=== PATIENT | female | born 1950 | race Caucasian/White ===

== ENCOUNTER → 2016-10-06 | Outpatient (CLI) | payer OTHER, MEDICAID | LOC: FIMAGING 14:35 | DX: Z12.31 Encounter for screening mammogram for malignant neoplasm of breast (principal) | CPT/HCPCS: G0202 ==

== ENCOUNTER → 2016-12-22 | Outpatient (CLI) | payer OTHER, MEDICAID | LOC: FIMAGING 14:42 | DX: N63.20 Unspecified lump in the left breast, unspecified quadrant (principal) | CPT/HCPCS: G0206 ==

== ENCOUNTER → 2017-01-14 | Outpatient (CLI) | payer OTHER, MEDICAID | LOC: FIMAGING 10:19 | DX: N63.21 Unspecified lump in the left breast, upper outer quadrant (principal) ==

== ENCOUNTER → 2017-05-13 | Outpatient (CLI) | payer OTHER, MEDICAID ==
--- NOTE | 2017-05-13 11:47 | CPEKG ---
Heart Rate: 105 RR Interval: 571 P-R Interval: 132 QRSD Interval: 72 QT Interval: 324 QTC Interval: 429 P [place]: 79 QRS [place]: 47 T Wave [place]: 99 EKG Severity - ABNORMAL ECG - EKG Impression: SINUS TACHYCARDIA EKG Impression: ABNORMAL R WAVE PROGRESSION. ? LEAD PLACEMENT VS POSTERIOR INFARCT Electronically Signed By: Jamie Nix 13-May-2017 12:41:10
== END ==
LOC: FCP 11:19
PROVIDERS: ATTEND Internal Medicine Cardiovascular Disease
DX: Z01.810 Encounter for preprocedural cardiovascular examination (principal); R00.0 Tachycardia, unspecified

== ENCOUNTER 2017-05-25 17:08 | Inpatient (IN) | payer OTHER, MEDICAID ==
--- NOTE | 2017-05-04 17:36 | BGECT ---
[f rep st] OUTPATIENT ECT Amended report DATE OF SERVICE: 05/01/[address] PLACE OF EVALUATION: [facility]. SOURCES OF INFORMATION: Include records from patient's previous treatment with Dr. Palm at the [facility], Dr. Palm's previous consultation for ECT dated 04/27/2012, previous hospitalization with Dr. Pierre at [facility] geriatric psych unit dated 04/23/2014 and my own admission note to the behavioral health services inpatient unit dated 05/28/2014, as well as recent labs, EKG, and a letter of referral from Dr. Alicea from [facility] that is not dated. CHIEF COMPLAINT: "I just have to do ECT." HISTORY OF PRESENT ILLNESS: Patient is a 66-year-old female with a history of schizoaffective disorder, depressed type. She was referred by Dr. Alicea after he saw her at the group home in which she resides, and stated that she was severely depressed. They had made numerous attempts to treat her with medications including Abilify, Cymbalta, Depakote, Elavil, imipramine, Zyprexa, Zoloft, Trileptal, Latuda and Seroquel. These were all ineffective and Dr. Alicea believes that the ECT is the only thing that has helped her when she gets this severe in the past. I discussed this with the patient and she stated that she felt "very depressed" and that she believes that the ECT "is the only thing that will help me." Staff notes that she is quite anergic, unable to ambulate significantly on her own, has pressure sores from lying in bed, has not been eating or drinking adequately and appears severely depressed. There have been no other significant interval changes from my previous evaluation of 05/29/2014, in regard to her general physical health. She continues to suffer from COPD, cor pulmonale, obesity, diabetes, and edema. She does have a pressure ulcer apparently in her sacral area. PAST PSYCHIATRIC HISTORY: Well documented elsewhere. She is currently a patient at [facility]. She has had numerous previous psychiatric hospitalizations including briefly with us in May of 2014. At that time, she had a court order for ECT, though was in such a tenuous medical state I did not perform ECT with her. She had been treated by Dr. Palm with a rather lengthy course of inpatient and outpatient maintenance ECT from April of 2012 until October of 2013. I saw her at the end of this course of treatment , in fact giving her her last treatment in October of 2013 before she requested discontinuation of ECT. We did stop at that time, though she returned in May of 2014, because she was not doing well. She was under court order at that time and then was admitted to the inpatient unit, but her health deteriorated, and we did not continue ECT after the 1 treatment on May 10, 2014. Since that time, she has been treated in the group home by Dr. Alicea with medication management. ALLERGIES: Levofloxacin, Lamictal, and clemastine. PAST MEDICAL HISTORY: Significant for COPD, cor pulmonale, obesity, type 2 diabetes, chronic edema. SOCIAL HISTORY: Patient continues to reside at [facility]. She was born and raised in [place]. She has 1 living sister, though it is unclear if she is still in contact with this person. She had 2 sisters and a brother who are . She did not graduate from high school. She has never been , but did have a partner in the past, who she considers to be her . She has no children. She identifies herself as homosexual. She has an extensive trauma history including the of her siblings at an early age. The patient is Syn[employer], though does not practice paul. SUBSTANCE ABUSE HISTORY: No significant substance abuse history is identified at this time. ADMISSION LABORATORY: Recent labs were drawn including a CBC which was normal, serum chemistries, which were also normal. Liver function was normal. EKG is difficult to interpret and shows extremely low voltage and inverted T-waves in V2. We will repeat this. PREPROCEDURE PHYSICAL EXAMINATION: Performed on 05/02/2017 by Elmo Hartman, nurse-practitioner, revealed no acute physical findings. MENTAL STATUS EXAMINATION: Reveals an elderly female who appears older than her stated age. She is interactive and, as has been my observation in the past, somewhat sandra. She is demanding and I spend at least 20 minutes getting her situated between her chair and her bed and helping to position herself comfortably. She interacts and is alert and well oriented. Her affect is blunted, dysphoric, stable and appropriate. Her mood is described as "very depressed." Her thought process is linear and goal directed. Her thought content reveals no overt psychosis. She is alert and oriented to person, place , time, and situation, and her sensorium is clear. She denies current thoughts of suicide though states that she feels like "I am going to if I don't get better." Her intellect appears to be average and her insight and judgment appear to be good. IMPRESSION: Schizoaffective disorder, depressed type, chronic with acute exacerbation of the mood component of her illness in the form of severe depression, chronic illnesses, recurrent depression, increasing physical disability. Patient is a 66-year-old female with a history of schizoaffective disorder. She has not wanted to do ECT in the past, even though she has had severe symptoms, and it has had to be court ordered. In my experience with her , she has been ambivalent about ongoing treatment even when she is feeling better, though at this time she is actively requesting ECT. I believe that she is a good candidate as this has worked well for her in the past and clearly she has failed multiple trials and close followup by Dr. Alicea as an outpatient. Staff and Dr. Alicea prefer that she pursue ECT on an outpatient basis so that they can continue to care for her at the group home. The patient states repeatedly to me that she believes ECT is her best hope at this time. She is well oriented and clearly able to give informed consent. I discussed again with her the basis of the treatment, the risks, benefits, and alternatives, the organization of the treatment and the potential side effects and toxicities. She states several times "I know all that stuff." She declines any educational materials. PLAN: 1. Will request prior authorization from Medicaid to proceed with acute course ECT. We will begin this if approved from the group home as an outpatient. 2. Will continue previous outpatient medications as per previously prescribed and coordinate ongoing care with Dr. Alicea and [facility]. 3. Estimate 8-10 acute course treatments and move to maintenance. 4. All of above pending adequate medical clearance. /[id number]/MODL Add acc#, 05/30/17, mick MEDINA
--- NOTE | 2017-05-25 17:20 | EDPHY ---
H & P Smoking Status: Former smoker Time Seen by Provider: 05/25/17 17:09 HPI/ROS: CHIEF COMPLAINT: M1 hold, failure to thrive HISTORY OF PRESENT ILLNESS: 66-year-old female who is a resident at [facility] presents to the emergency department by ambulance on M1 hold. The patient has a history of schizoaffective disorder and the hold states that she has been losing weight and refusing to eat because of depression. Patient states that she has been eating 2 meals a day. She states that she has been losing weight and she does not know why. She is just getting over pneumonia which was diagnosed a few weeks ago and she feels that her breathing is much better now. No pain in her chest currently. She denies shortness of breath. She does have a history of COPD. No fevers or chills. She denies suicidal ideation or homicidal ideation. Denies auditory or visual hallucinations. REVIEW OF SYSTEMS: Constitutional: No fever, no chills. Eyes: No double or blurry vision. ENT: No sore throat. Respiratory: No cough, no shortness of breath. Cardiac: No chest pain. Gastrointestinal: No abdominal pain, vomiting or diarrhea. Genitourinary: No dysuria. Musculoskeletal: No neck or back pain. Skin: No rashes. Neurological: No headache. (Amelia Diaz) Past Medical/Surgical History: CHF, COPD, cellulitis, psychosis, hypertension, diabetes, hypothyroidism, depression (Joe,Amelia ) Social History: [facility] at [facility] Physical Exam: General Appearance: Alert, no distress. 36.3, 114/72, 92%, 105, 18 Eyes: Pupils equal and round. Extraocular motions are all intact. ENT: Mouth: Mucous membranes moist. Respiratory: No wheezing, rhonchi, or rales, lungs are clear to auscultation. Cardiovascular: Regular rate and rhythm. Gastrointestinal: Abdomen is soft and nontender, no masses, no rebound or guarding, bowel sounds normal. Neurological: Alert and oriented x 3, cranial nerves II through XII grossly intact Skin: Warm and dry, no rashes. Musculoskeletal: Nontender to palpate along the cervical, thoracic or lumbar spine. Neck is supple. Extremities: Full range of motion and no peripheral edema. Psychiatric: Patient is oriented X 3, there is no agitation. (Amelia Diaz) Constitutional: Initial Vital Signs Temperature (C) 36.3 C 05/25/17 17:14 Heart Rate 105 H 05/25/17 17:14 Respiratory Rate 18 05/25/17 17:14 Blood Pressure 114/72 18 17:14 O2 Sat (%) 92 18 17:14 O2 Delivery Mode Room Air O2 (L/minute) 2 Allergies/Adverse Reactions: levofloxacin [From Levaquin] Allergy (Intermediate, Verified 05/25/17 17:18) Abdominal Pain lamotrigine [From Lamictal] Allergy (Mild, Verified 05/25/17 17:18) Rash clemastine [Clemastine] Allergy (Unknown, Verified 05/25/17 17:18) diphenhydramine HCl [From Benadryl] Allergy (Unknown, Verified 05/25/17 17:18) erythromycin base [Erythromycin Base] Allergy (Unknown, Verified 05/25/17 17:18) Penicillins Allergy (Unknown, Verified 05/25/17 17:18) prochlorperazine edisylate [From Compazine] Allergy (Unknown, Verified 05/25/17 17:18) prochlorperazine maleate [From Compazine] Allergy (Unknown, Verified 05/25/17 17 :18) pseudoephedrine HCl [From Sudafed] Allergy (Unknown, Verified 05/25/17 17:18) Sulfa (Sulfonamide Antibiotics) Allergy (Unknown, Verified 05/25/17 17:18) theophylline Allergy (Unknown, Verified 08/02/14 03:05) Arrhythmia "THERE IS MORE, CAN'T REMEMBER Allergy (Unknown, Uncoded 08/02/14 03:05) Home Medications: Medication Instructions Recorded Paliperidone Palmitate [Invega 156 mg IM ONCE 05/22/14 Sustenna (*)] Albuterol [Proventil Inhaler HFA 2 puffs IH QID 30 Days mdi 06/03/14 (*)] Benztropine Mesylate [Cogentin] 1 mg PO BID #60 tab 06/03/14 Divalproex [Depakote Sprinkle 125 500 mg PO BID #240 cap 06/03/14 MG (*)] Fluticasone/Salmeter 250/50Mcg 1 puffs IH BID 30 Days disk 06/03/14 [Advair 250/50 (*)] Meloxicam [Mobic 7.5 mg] 7.5 mg PO BIDMEAL #60 tablet 06/03/14 Tears/Hypromellose [Natural 2 drops EACHEYE QID PRN 30 Days 06/03/14 Balance] opht.btl Acetaminophen [Tylenol ES 500 mg 500 mg PO Q4 PRN 05/25/17 (*)] Cholecalciferol (Vitamin D3) 50,000 unit PO Q30D 05/25/17 [Vitamin D] Docusate Sodium [Colace 100 MG (*)] 100 mg PO BID 05/25/17 Ipratropium [Atrovent Neb (*)] 0.5 mg IH Q4H PRN 05/25/17 Ketoconazole 2% [Nizoral Shampoo 0 ml TP TUFR 05/25/17 (*)] LORazepam [Ativan (*)] 1 mg PO BID PRN 05/25/17 Lidocaine [Aspercreme] 1 each TP BID PRN 05/25/17 Liothyronine Sodium [Cytomel 25 25 mcg PO DAILY 05/25/17 mcg (*)] Loperamide HCl [Imodium 2 mg (*)] 2 mg PO PRN PRN 05/25/17 Polyethylene Glycol 3350 [Miralax 17 gm PO DAILY PRN 05/25/17 17 gm (*)] Sennosides [Senna Lax] 17.2 mg PO DAILY PRN 05/25/17 Sodium Cl/Potassium Chloride 2 each PO BID PRN 05/25/17 [THERMOTABS TABLET] oxyCODONE/APAP 5/325 [Percocet 1 tab PO QID PRN 05/25/17 5/325 (*)] Medical Decision Making ED Course/Re-evaluation: 1926: I spoke with the patient's psychiatrist, Dr. Alicea, who feels that this patient is gravely disabled. He states that she has schizoaffective disorder and is having increasing symptoms of depression over last several months. It is getting to the point now where she is refusing to get out of bed T meals and now is refusing to get out of bed to use the bathroom. He has already contacted [facility] and feels strongly that she needs to be evaluated. (Amelia Diaz) 0206; patient has been seen evaluated by mental health. They feel that she is gravely disabled and she needs inpatient psychiatric hospitalization criteria. They will look for bed placement. 0347: No acute events overnight patient has been sleeping. Patient will be signed over to Dr. Frederick at 7am Shift-change. Patient on M1 hold, history of schizoaffective disorder, gravely disabled. 0332AM: 05/27/17: Patient has been sleeping. Signed over at 7:00 a.m. Shift change to Dr. Lisa. On M1 hold gravely disable with schizoaffective disorder pending placement. (Juan Irizarry) Other Provider: Care assumed at 0637 with plan for psych admission, schizoaffective with worsening depression, not eating, gravely disabled. 1440: Signed out to Dr. Almaguer with plan for psychiatric hospitalization. ( Trevor Frederick) 2024: Patient has been evaluated. Placement pending. (Delvin Almaguer) I assumed care of the patient at 7 o'clock in the morning. Update at 9:45 a.m.: The patient has been accepted for inpatient psychiatric hospitalization at [facility] by Dr. Fili Su. I have filled out the EMTALA transfer form. (Nikolay Lisa) Care Turn Over: Care will be turned over to Dr. Juan Irizarry at 12:15 a.m.. (Amelia Diaz) - Data Points Laboratory Results: Laboratory Results 05/25/17 17:50 05/25/17 17:50 Medications Given: Oxycodone/Acetaminophen (Percocet 5/325) 1 tab PO Q6HRS CIELO Stop: 06/05/17 03:59 Last Admin: 05/27/17 09:18 Dose: Not Given Fluticasone/Salmeterol (Advair) 1 puffs IH BID CIELO Stop: 11/22/17 20:59 Last Admin: 05/26/17 21:02 Dose: Not Given Trolamine Salicylate (Aspercreme) 1 janina TP BID CIELO Stop: 11/22/17 10:44 Last Admin: 05/26/17 21:02 Dose: 1 janina Discontinued Medications Albuterol/Ipratropium (Duoneb) 3 ml IH EDNOW ONE Stop: 05/26/17 17:39 Last Admin: 05/26/17 17:49 Dose: 3 ml Benztropine Mesylate (Cogentin) 1 mg PO BID ONE Stop: 05/25/17 23:53 Last Admin: 05/26/17 09:56 Dose: 1 mg Benztropine Mesylate (Cogentin) 1 mg PO ONCE ONE Stop: 05/26/17 21:01 Last Admin: 05/26/17 20:58 Dose: 1 mg Benztropine Mesylate (Cogentin) 1 mg PO EDNOW ONE Stop: 05/27/17 07:23 Last Admin: 05/27/17 08:05 Dose: 1 mg Divalproex Sodium (Depakote Er) 500 mg PO BID CIELO Stop: 11/21/17 23:44 Last Admin: 05/26/17 09:00 Dose: Not Given Divalproex Sodium (Depakote Sprinkle) 500 mg PO ONCE ONE Stop: 05/26/17 08:18 Last Admin: 05/26/17 09:56 Dose: 500 mg Divalproex Sodium (Depakote) 500 mg PO ONCE ONE Stop: 05/26/17 21:01 Last Admin: 05/26/17 20:58 Dose: 500 mg Divalproex Sodium (Depakote) 500 mg PO EDNOW ONE Stop: 05/27/17 07:23 Last Admin: 05/27/17 08:04 Dose: 500 mg Docusate Sodium (Colace) 100 mg PO BID ONE Stop: 05/25/17 23:54 Last Admin: 05/26/17 00:29 Dose: Not Given Lorazepam (Ativan) 1 mg PO ONCE ONE Stop: 05/26/17 21:01 Last Admin: 05/26/17 20:59 Dose: 1 mg Oxycodone/Acetaminophen (Percocet 5/325) 1 tab PO EDNOW ONE Stop: 05/25/17 20:20 Last Admin: 05/25/17 21:48 Dose: 1 tab Oxycodone/Acetaminophen (Percocet 5/325) 1 tab PO ONCE ONE Stop: 05/26/17 22:01 Last Admin: 05/26/17 21:00 Dose: 1 tab Departure - Departure Clinical Impression: Schizoaffective disorder Qualifiers: Schizoaffective disorder type: bipolar Qualified Code(s): F25.0 - Schizoaffective disorder, bipolar type Condition: Good Instructions: Schizoaffective Disorder (ED) Referrals: Sander Alicea MD [Non Staff Provider (MD)] - As per Instructions
[2017-05-25 17:58] LABS: PLATELET COUNT 280 10^3/uL (150-400)
[2017-05-25] MEDS ORDERED: OXYCODONE/APAP 5/325 TAB PO ONE (20:19)
[2017-05-25] MEDS ORDERED: DIVALPROEX ER 500 MG TAB PO SCH (23:45)
[2017-05-25] MEDS ORDERED: DOCUSATE SODIUM 100 MG CAP PO ONE (23:53)
[2017-05-26] MEDS: BENZTROPINE MESYLATE 1 MG TAB PO ONE ×2 (00:29→09:56)
[2017-05-26] MEDS: OXYCODONE/APAP 5/325 TAB PO SCH ×4 (03:50→15:54)
[2017-05-26] MEDS ORDERED: DIVALPROEX NA 125 MG CAP.SPRINKLE PO ONE (08:17)
[2017-05-26] MEDS ORDERED: FLUTICASONE/SALMETER 250/50MCG DISKUS IH SCH (09:00)
[2017-05-26] MEDS: TROLAMINE SALICYLATE 85 GM CRTUBE TP SCH ×2 (13:31→21:02)
[2017-05-26] MEDS ORDERED: IPRATROPIUM/ALBUTEROL 3 ML DEYVIAL IH ONE (17:38)
[2017-05-26] MEDS ORDERED: LORazepam 1 MG TAB PO ONE (21:00)
[2017-05-26] MEDS ORDERED: DIVALPROEX NA 500 MG TAB PO ONE (21:00)
[2017-05-26] MEDS ORDERED: BENZTROPINE MESYLATE 1 MG TAB PO ONE (21:00)
[2017-05-26] MEDS: FLUTICASONE/SALMETER 250/50MCG DISKUS IH SCH (21:02)
[2017-05-26] MEDS ORDERED: OXYCODONE/APAP 5/325 TAB PO ONE (22:00)
[2017-05-27] MEDS: OXYCODONE/APAP 5/325 TAB PO SCH ×4 (04:38→17:09)
[2017-05-27] MEDS ORDERED: BENZTROPINE MESYLATE 1 MG TAB PO ONE (07:22)
[2017-05-27] MEDS ORDERED: DIVALPROEX NA 500 MG TAB PO ONE (07:22)
[2017-05-27] MEDS: TROLAMINE SALICYLATE 85 GM CRTUBE TP SCH (11:49)
[2017-05-27] MEDS ORDERED: POTASSIUM CHLORIDE PO PRN ×2 (11:54→12:07)
[2017-05-27] MEDS ORDERED: IPRATROPIUM BROMIDE 0.5 MG/2.5 ML DEYVIAL IH PRN (11:54)
[2017-05-27] MEDS ORDERED: POLYETHYLENE GLYCOL 3350 17 GM PKT PO PRN (11:54)
[2017-05-27] MEDS ORDERED: SODIUM CL PO PRN ×2 (11:54→12:07)
[2017-05-27] MEDS ORDERED: SENNOSIDES 1 TAB PO PRN ×2 (11:54→12:02)
[2017-05-27] MEDS ORDERED: NON-FORMULARY NEW DRUG (Tears/Hypromellose [Natural Balance] 2 DROPS) EACHEYE PRN (11:54)
[2017-05-27] MEDS ORDERED: LIDOCAINE TP PRN (11:54)
[2017-05-27] MEDS ORDERED: OXYCODONE/APAP 5/325 TAB PO PRN (11:54)
[2017-05-27] MEDS ORDERED: KETOCONAZOLE 2% 120 ML SHAMPOO TP SCH (12:00)
[2017-05-27] MEDS ORDERED: TROLAMINE SALICYLATE 85 GM CRTUBE TP PRN (12:06)
[2017-05-27] MEDS ORDERED: HYPROMELLOSE EACHEYE PRN (12:10)
[2017-05-27] MEDS ORDERED: TEARS EACHEYE PRN (12:10)
[2017-05-27] MEDS: KETOCONAZOLE 2% 120 ML SHAMPOO TP SCH (12:50)
[2017-05-27] MEDS: FLUTICASONE/SALMETER 250/50MCG DISKUS IH SCH ×2 (15:00→19:55)
[2017-05-27] MEDS: ALBUTEROL 60 PUFFS/8 GM MDI IH SCH ×3 (15:00→19:54)
[2017-05-27] MEDS: MELOXICAM 7.5 MG PO SCH (17:11)
--- NOTE | 2017-05-27 17:31 | BAPA ---
[f rep st] ADMISSION PSYCHIATRIC ASSESSMENT REPORT TITLE: Psychiatric admission history. ADMISSION DATE: 05/27/2017 DATE OF EVALUATION: 05/27/2017 CHIEF COMPLAINT: "I don't know why they sent me here. There's nothing really wrong with me." HISTORY OF PRESENT ILLNESS: Patient is a 66-year-old female with a history of schizoaffect stacey disorder. She is a resident at [facility] and has been for several year s. She was a previous inpatient and outpatient ECT patient through the [facility], mary anne ated primarily by Dr. Everett. I treated her briefly in 2014 and then consulted on her again in 2014 an d about a month ago. She has a history of decompensation and severe depression, and has been notorio usly treatment unresponsive to medications. Dr. Alicea, her outpatient psychiatrist, asked me to visi t with her several weeks ago due to another decline in regard to her appropriateness for repeat ECT. I saw her at the [facility] and discussed the situation with her, at which time she sta betty she believed the ECT would be helpful. Unfortunately, when I reviewed her medical status and dis cussed the case with her Medicaid director global medical affairs, Dr. Tapia, it appeared that she had too high a med ical acuity to justify given the lack of emergency need. Since that time, she has declined further a nd is ambulating very little, if at all; continues to lose weight; is not getting out of bed, and by Dr. Alicea's estimation, is on a trajectory to . The patient is aware of this and states that troy felix is in the hospital now and is not interested in ECT at this time because she does not believe she n eeds it. She states "all I need to do is eat and gain 10 pounds and I can go back to my home." She states that she does not feel depressed, though she feels anergic and unmotivated. She also states t hat she has no appetite and does not desire to eat. She denies any active psychotic symptoms, though has heard voices in the past and had various delusions. She currently states that she enjoys living at [facility] and wants to return there as soon as possible. She states that she is not sleeping at night, preferring to stay awake until about 5 in the morning and then sleeping during the day. She states she stays up and watches television instead of sleeping. PAST PSYCHIATRIC HISTORY: Significant for admissions to this facility from 05/28 to 06/03/2014, 05/05 to 05/26/2014, and 04/17 to 06/07/2012, at which time she received ECT with Dr. Everett. 12/30 to 03/2011, 07/30 to 08/28/2009, 03/22 to 04/25/2009, and 03/01/2009 to 03/17/2009. She has been seen a lso in the emergency department for confusion or psychosis on numerous other instances. She has had court-ordered ECT in the past and has had been on an M1 hold numerous times, then referred back to [facility] facility. She has been followed by [facility] for some time and currently sees Dr. Kenneth doan. ALLERGIES: Listed to levofloxacin, lamotrigine, clemastine, diphenhydramine, erythromycin, Compazine , pseudoephedrine, sulfa, and theophylline. CURRENT MEDICATIONS: Include Cogentin 1 mg b.i.d., vitamin D3 50,000 units once every 30 days, Imodi um 2 mg as needed, Invega Sustenna 156 mg (interval unknown), albuterol inhaler p.r.n., Depakote 500 mg b.i.d., Sprinkles, Colace 100 mg b.i.d., Advair Diskus 1 puff b.i.d., ipratropium inhaler p.r.n., Nizoral shampoo Tuesday and Tuesday, lidocaine patch 1 transdermally b.i.d., Cytomel 25 mcg daily, Ati van 1 mg b.i.d., Mobic 7.5 mg b.i.d., Percocet 5/325 one q.i.d., MiraLAX 17 g daily p.r.n., and senna p.r.n. PAST MEDICAL HISTORY: Significant for congestive heart failure, COPD with recurrent pneumonia, lower extremity cellulitis, resolving sacral decubitus ulcers, hypertension, diabetes, and hypothyroidism. ADMISSION LABORATORY: CBC shows a white count up at 14.23 and neutrophil percentage of 79.4; otherwi se normal. Serum chemistries showed creatinine low at 0.5, otherwise normal. TSH is normal at 1.94. Urinalysis is negative. Urine drug screen is positive for benzodiazepines only. MENTAL STATUS EXAMINATION: Reveals a very thin, cachectic-appearing female lying in a hosp ital bed. She appears quite gaunt, drawn, and ill. She is very pale. She establishes and maintains good eye contact in a calm and pleasant, as well as appropriate, social demeanor. Her affect is cali nted to flat. Her mood is described as "fine." Her thought process is linear and goal directed. He r thought content reveals no evidence of psychosis. She is alert and oriented to person, place, time , and situation, and her sensorium is clear. She denies any thoughts of suicide, homicide, or violen ce at this time. Her insight and judgment appear to be good. IMPRESSION: 1. Schizoaffective disorder, chronic with acute exacerbation; likely depressed. 2. Chronic obstructive pulmonary disease. 3. Congestive heart failure. 4. Cachexia. 5. Diabetes. 6. Hypertension. Patient is a 66-year-old female who is appearing to progressively decline physically. She has chronic mental illness, but at this time it is unclear whether or not this is exacerbated as she is very clear, does not endorse feeling depressed, does not appear (per se) depressed, despite her ve ry drawn and gaunt appearance. There is no evidence of unstable psychosis, and she denies any suicid ality. She is followed closely by Dr. Alicea, and his primary concerns are for her physical well-bein g at this time. I will discuss this case further with him and try to identify specific psychiatric s ymptoms, other than her overall global decline. I do not currently feel comfortable providing ECT fo r her, given her physical compromise. I attempted to place the patient in [facility] where she could receive more robust medical support and then possibly receive ECT if they deemed it appropriate . They did not accept her, and she was admitted to us. We will manage her medically at this time an d again try to establish specific goals for psychiatric treatment. ESTIMATED LENGTH OF STAY: 3-5 days. /[id number]/MODL
[2017-05-27] MEDS ORDERED: NON-FORMULARY NEW DRUG (Meloxicam [Mobic 7.5 Mg] 7.5 MG) PO SCH (18:00)
[2017-05-27] MEDS: DIVALPROEX NA 125 MG CAP.SPRINKLE PO SCH (19:42)
[2017-05-27] MEDS: DOCUSATE SODIUM 100 MG CAP PO SCH (19:43)
--- NOTE | 2017-05-27 20:57 | BCON ---
[f rep st] BEHAVIORAL HEALTH CONSULTATION INTERNAL MEDICINE CONSULTATION DATE OF CONSULTATION: 05/27/2017 REFERRING PHYSICIAN: Fili Su MD REASON FOR REFERRAL: Medical clearance for inpatient behavioral health stay. HISTORY OF PRESENT ILLNESS: This patient came to the emergency department 2 days ago, brought by ambulance on an M1 hold. She had been losing weight and refusing to eat and presumably had worsening depression. She had been recently treated for pneumonia several weeks before and says that she just has not been doing well since then. She was evaluated by the mental health team and admitted for further psychiatric care. She currently complains of feeling weak and needing assistance to arise from seated. She has some pain which she describes as neuropathy in the feet. She also has back pain. PAST MEDICAL HISTORY: 1. Schizoaffective disorder. 2. CHF. 3. COPD. 4. Cellulitis. 5. Hypertension. 6. Hypothyroidism. 7. Sacral decubitus ulcers. 8. Diabetes is listed as a medical condition, but she denies having diabetes. MEDICATIONS: Prior to admission: 1. Albuterol inhaler 2 puffs four times daily. 2. Divalproex sodium 500 mg p.o. twice daily. 3. Docusate 100 mg p.o. twice daily. 4. Fluticasone/salmeterol 1 puff twice daily. 5. Ipratropium nebulizer q.4 hours p.r.n. 6. Ketoconazole shampoo. 7. Liothyronine 25 mcg p.o. daily. 8. Lorazepam 1 mg p.o. twice daily p.r.n. 9. Oxycodone/acetaminophen 1 tab scheduled q.6 hours and 1 tab p.o. four times daily p.r.n. 10. Polyethylene glycol 17 g p.o. daily p.r.n. 11. Senna 1 p.o. daily p.r.n. 12. Trolamine salicylate 1 application twice daily p.r.n. 13. Meloxicam 7.5 mg twice daily. 14. Sodium chloride/potassium chloride Thermotabs. 15. Artificial Tears 2 drops in each eye four times daily p.r.n. SOCIAL HISTORY: She is a former smoker. She lives at [facility]. FAMILY HISTORY: Noncontributory. REVIEW OF SYSTEMS: She has weakness. She says she does not sleep at night typically, but sleeps during the day. She says she takes 2 meals a day, lunch and dinner. Her breathing feels okay, but she does not feel like it has fully returned to baseline since her pneumonia and she is using oxygen. She has an occasional cough and she knows she has some phlegm, as well as a runny nose. She has had constipation and says she has not received her usual laxatives and normally she does not have constipation. She denies urinary frequency or dysuria. Otherwise, a 10-point review of systems is negative. PHYSICAL EXAM: VITAL SIGNS: Blood pressure is 95/53, heart rate is 93, respiratory rate is 12, oxygen saturation is 93% reportedly on room air, but she is using oxygen during her exam. Temperature is 36.6 degrees centigrade. Her weight is 65.5 kg for a body mass index of 24. GENERAL: This is a pale, chronically ill appearing woman, dressed in hospital gown, sitting in chair, watching TV. She requires assist of 2 to arise from seated, but then is able to ambulate with short shuffling steps using a front- wheeled walker and assistance to manage oxygen tubing and portable oxygen tank. HEENT: Extraocular movements are intact. Pupils are equal, round, reactive to light. Mucous membranes are moist. She is edentulous. She has a mildly crowded airway, Mallampati class 2. There is posterior oropharyngeal mucus visible. NECK: Supple. HEART: There is a regular rate and rhythm. Heart sounds are distant. There is no JVD. There is trace edema. LUNGS: There are expiratory rhonchi and wheezes bilaterally in the lower lobes. There is reduced air movement. There are no rales. She is not coughing. ABDOMEN: Soft, nontender, nondistended with normoactive bowel sounds. EXTREMITIES: She has a brawny discoloration and skin thickening bilaterally to the lower extremities with possibly trace edema. NEUROLOGIC: She is alert and appears to be oriented. She certainly knows her current situation. Orientation to date was not tested. She knows where she is. Cranial nerves 2-12 are grossly intact. There is no focal weakness, though she needs assistance to arise from a chair. Sensation overall is intact to light touch. She has bradykinesia and hypophonia and a somewhat nasal voice. LABORATORY STUDIES: From 2 days ago, CBC revealed an elevated white blood cell count at 14.23 with elevated absolute neutrophil count of 11.3, but no left shift. Hemoglobin, hematocrit, and platelet count were normal. Serum chemistry revealed a low creatinine at 0.5, otherwise renal function and electrolytes were normal. TSH was normal at 1.94. Urinalysis was normal. Toxicology screen in the urine was negative for benzodiazepines and otherwise negative for substances of abuse. ASSESSMENT AND RECOMMENDATIONS: 1. Mental health issues pending further evaluation and management per Psychiatry and the mental health team. 2. Failure to thrive with weakness and weight loss. Laboratory studies are overall unrevealing. The dietitian has been consulted appropriately to optimize her nutrition. Will order physical therapy consult, as she has difficulty arising from chair, to optimize her mobility. It could be that she has yet to fully recover from her pneumonia. Would consider chest x-ray, but this is not available in this building until Tuesday. If she continues to be hypoxemic, consider chest x-ray, as well as consider repeat CBC as she had an elevated white blood cell count 2 days ago. Unclear whether optimizing of her psychiatric medications might improve her appetite and allow her to improve her function. 3. Hypoxia with recent pneumonia. Her lung examination is consistent with continued phlegm production. Will initiate a trial of guaifenesin, as well as incentive spirometry. Consider chest x-ray as above. 4. Chronic obstructive pulmonary disease. She appears to be on appropriate medications. 5. History of congestive heart failure. She does not currently present as congestive heart failure. There is minimal edema. There is no jugular venous distention. There are no rales on her lung examination and she is not on any specific cardiac medications. Consider further evaluation including brain natriuretic peptide determination should she continue to be hypoxemic. 6. Chronic pain. She has been continued on the oxycodone/acetaminophen combination, as well as topical trolamine. 7. Hypothyroidism. Appears to be adequately replaced with liothyronine dosing. 8. Constipation exacerbated by opiate medications. She is appropriately continued on polyethylene glycol, as well as senna. I see no medical contraindications to this patient's continued stay on the inpatient behavioral health unit or to any psychiatric medications or procedures. Thank you very much for including me in the care of this patient. Please do not hesitate to contact me or the hospitalist service should there be need for further medical evaluation. I will follow along regarding her respiratory status. /[id number]/MODL MTDD
[2017-05-27] MEDS ORDERED: FLUTICASONE/SALMETER 250/50MCG DISKUS IH SCH (21:00)
[2017-05-28] MEDS: OXYCODONE/APAP 5/325 TAB PO SCH ×5 (00:05→23:23)
[2017-05-28] MEDS: ALBUTEROL 60 PUFFS/8 GM MDI IH SCH ×4 (08:18→20:45)
[2017-05-28] MEDS: MELOXICAM 7.5 MG PO SCH ×2 (08:19→18:21)
[2017-05-28] MEDS: DIVALPROEX NA 125 MG CAP.SPRINKLE PO SCH ×2 (09:28→20:24)
[2017-05-28] MEDS: FLUTICASONE/SALMETER 250/50MCG DISKUS IH SCH ×2 (09:28→20:34)
[2017-05-28] MEDS: LIOTHYRONINE SODIUM 25 MCG TAB PO SCH (09:28)
[2017-05-28] MEDS: DOCUSATE SODIUM 100 MG CAP PO SCH ×2 (09:28→20:25)
--- NOTE | 2017-05-28 16:12 | SOAPPROG ---
SOAP Progress Note Assessment/Plan: Assessment: 69 yo woman admitted d/t physical deterioration and functional decline after past several months while resident at [facility]. She has h/o schizoaffective disorder, with depressed mood. She has received ECT from Dr. Palm in past. Dr. Su evaluated patient a month ago and again on admission to , but did not feel ECT was appropriate given her lack of acute psychiatric symptoms and poor physical condition. Plan: 05/28/17 16:07 1. Patient did ambulate to dining to eat lunch. Her pulse ox was 90% on RA, so she has been on 2L continuous 02 by MO. 2. Patient had urinary incontinence x 2 last night. 3. Patient ate 20% of dinner last night, did not eat breakfast, but had 50% of lunch today. She drank about 125cc's of water this AM. She also had some cranberry juice. Subjective: Met with patient, reviewed chart and d/w staff. Patient was sitting up in bed getting ready to go to lunch. RN was assisting patient with 02 canister. Patient was able to explain to MD that she had received ECT at his hospital in the past. She also mentioned a recent bout of pneumonia superimposed on COPD which led to her receiving 02 at [facility]. Patient denies any SI/HI, no report of psychotic sxs, patient denies hallucinations and paranoia. Objective: Vital Signs Temp Pulse Resp BP Pulse Ox 36.6 C 108 H 16 89/57 L 93 05/27/17 11:55 05/28/17 12:56 05/28/17 12:56 05/28/17 12:56 05/28/17 12:57 MSE: Affect: Euthymic Mood: "OK" TP: Linear, slow TC: Denies any SI/HI, no AH/ VH, no paranoia Insight/Judgment: Fair - Time Spent With Patient Time Spent With Patient: 20" - Pending Discharge Pending Discharge Within 24 Hours: No Pending Discharge Within 48 Hours: No ICD10 Worksheet Patient Problems: Problems Problem Status Onset Schizoaffective disorder Acute Schizo-affective schizophrenia, chronic condition with acute exacerbation Acute
[2017-05-29] MEDS: OXYCODONE/APAP 5/325 TAB PO SCH ×4 (05:38→23:52)
[2017-05-29] MEDS: ALBUTEROL 60 PUFFS/8 GM MDI IH SCH ×4 (05:47→23:11)
[2017-05-29] MEDS: MELOXICAM 7.5 MG PO SCH ×2 (07:35→17:30)
[2017-05-29] MEDS: DIVALPROEX NA 125 MG CAP.SPRINKLE PO SCH ×2 (08:15→23:11)
[2017-05-29] MEDS: LIOTHYRONINE SODIUM 25 MCG TAB PO SCH (08:15)
[2017-05-29] MEDS: DOCUSATE SODIUM 100 MG CAP PO SCH ×2 (08:16→23:11)
[2017-05-29] MEDS: FLUTICASONE/SALMETER 250/50MCG DISKUS IH SCH ×2 (08:16→23:15)
--- NOTE | 2017-05-29 15:44 | SOAPPROG ---
SOAP Progress Note Assessment/Plan: Assessment: 69 yo woman admitted d/t physical deterioration and functional decline after past several months while resident at [facility]. She has h/o schizoaffective disorder, with depressed mood. She has received ECT from Dr. Palm in past. Dr. Su evaluated patient a month ago and again on admission to , but did not feel ECT was appropriate given her lack of acute psychiatric symptoms and poor physical condition. Plan: 05/28/17 16:07 1. Patient did ambulate to dining to eat lunch. Her pulse ox was 90% on RA, so she has been on 2L continuous 02 by MN. 2. Patient had urinary incontinence x 2 last night. 3. Patient ate 20% of dinner last night, did not eat breakfast, but had 50% of lunch today. She drank about 125cc's of water this AM. She also had some cranberry juice. 05/29/17 15:40 1. Patient able to ambulate with assistance from walker and staff (needs assistance to stand up from sitting position). 2. PT evaluated patient and found she has good strength and would be ideal candidate for rehabilitation therapy. 3. Ordered dietary consult to start patient on nutrition supplements. She was drinking Ensure at [facility]. 4. Patient eating 25% of meals. Fluid intake is around 150cc's with each meal. 5. Slept 10-1/2 hrs last night. 6. No incontinence x 24 hrs Subjective: Met with patient, reviewed chart and d/w staff. PT saw patient this AM and recommend rehab. She has difficulty standing up from seated position, but otherwise ambulates w/o difficulty with walker. She requested Ensure or similar nutritional supplement. Will order dietary consult. She denies feeling sad, anxious or depressed and denies any SI/HI. She denies any psychotic sxs and there is no evidence of any based on observation. Objective: Vital Signs Temp Pulse Resp BP Pulse Ox 36.6 C 101 H 20 121/62 H 94 05/29/17 06:00 05/29/17 06:00 05/29/17 06:00 05/29/17 06:00 05/29/17 06:00 MSE: Affect: Euthymic Mood: "Good" TP: Linear TC: No SI/HI, denies any psychosis Insight/Judgment: Fair - Time Spent With Patient Time Spent With Patient: 20" - Pending Discharge Pending Discharge Within 24 Hours: No Pending Discharge Within 48 Hours: No ICD10 Worksheet Patient Problems: Problems Problem Status Onset Schizoaffective disorder Acute Schizo-affective schizophrenia, chronic condition with acute exacerbation Acute
[2017-05-30] MEDS: ALBUTEROL 60 PUFFS/8 GM MDI IH SCH ×4 (05:51→21:34)
[2017-05-30] MEDS: OXYCODONE/APAP 5/325 TAB PO SCH ×4 (05:51→23:51)
[2017-05-30] MEDS: DIVALPROEX NA 125 MG CAP.SPRINKLE PO SCH ×2 (08:52→21:21)
[2017-05-30] MEDS: DOCUSATE SODIUM 100 MG CAP PO SCH ×2 (08:52→21:23)
[2017-05-30] MEDS: LIOTHYRONINE SODIUM 25 MCG TAB PO SCH (08:52)
[2017-05-30] MEDS: FLUTICASONE/SALMETER 250/50MCG DISKUS IH SCH ×2 (08:52→21:24)
[2017-05-30] MEDS: MELOXICAM 7.5 MG PO SCH ×2 (09:03→17:01)
--- NOTE | 2017-05-30 15:49 | SOAPPROG ---
[facility] Progress Note Assessment/Plan: Assessment: Plan: 05/30/17 15:47 Mood: Appears stable at this time. She may be best served at this point by inpatient rehab to address her physical issues. I could follow her up there and continue to monitor and/or treat any psychiatric problems. Subjective: Pt seen, discussed with staff, chart reviewed, discussed with Dr. Arcos. She had an uneventful weekend. Spent most of her time in bed. Seen by Rehab and may be a candidate for inpatient treatment. She continues to deny specific psychiatric sx's but states, "I'm just weak." Able to get up to meals and toilet though has had some incontinence. Staff notes no psychosis. Objective: Vital Signs Temp Pulse Resp BP Pulse Ox 36.8 C 72 17 105/55 L 95 05/30/17 06:00 05/30/17 06:00 05/30/17 06:00 05/30/17 06:00 05/30/17 06:00 MSE: Lying in bed. Activity is low. She makes good eye contact and interacts well. Pleasant and coop. Affect is blunted, stable, approp. Mood is "fine." TP linear. TC reveals no psychosis. Say SI. - Time Spent With Patient Time Spent With Patient: 25" ICD10 Worksheet Patient Problems: Problems Problem Status Onset Schizoaffective disorder Acute Schizo-affective schizophrenia, chronic condition with acute exacerbation Acute
[2017-05-31] MEDS: ALBUTEROL 60 PUFFS/8 GM MDI IH SCH ×4 (05:59→20:55)
[2017-05-31] MEDS: OXYCODONE/APAP 5/325 TAB PO SCH ×3 (06:00→17:27)
[2017-05-31 06:18] VITALS: RESP 14
[2017-05-31] MEDS: MELOXICAM 7.5 MG PO SCH ×2 (07:34→17:44)
[2017-05-31] MEDS: DOCUSATE SODIUM 100 MG CAP PO SCH ×2 (08:32→20:53)
[2017-05-31] MEDS: LIOTHYRONINE SODIUM 25 MCG TAB PO SCH (08:33)
[2017-05-31] MEDS: DIVALPROEX NA 125 MG CAP.SPRINKLE PO SCH ×2 (08:33→20:52)
[2017-05-31] MEDS: FLUTICASONE/SALMETER 250/50MCG DISKUS IH SCH ×2 (08:33→20:54)
[2017-05-31] MEDS: KETOCONAZOLE 2% 120 ML SHAMPOO TP SCH (12:34)
--- NOTE | 2017-05-31 16:41 | SOAPPROG ---
[facility] Progress Note Assessment/Plan: Assessment: Plan: 05/30/17 15:47 Mood: Appears stable at this time. She may be best served at this point by inpatient rehab to address her physical issues. I could follow her up there and continue to monitor and/or treat any psychiatric problems. 05/31/17 16:42 Mood: No change. Continues to focus on physical issues. Will CCM, await word from rehab. Subjective: Pt seen, discussed with staff. Up in day room visiting with sister over lunch. Both state they are interested in possible rehab. Pt continues to spend much of her time in bed. C/o "being too tired" to go to groups. This is described as physical weakness rather than sleepiness. Objective: Vital Signs Temp Pulse Resp BP Pulse Ox 36.4 C 70 14 117/61 99 05/31/17 07:04 05/31/17 07:04 05/31/17 07:04 05/31/17 07:04 05/31/17 07:04 MSE: Calm, coop. Appears tired/weak. Affect is blunted to flat. Mood is "fine." TP linear. TC reveals no psychosis. Denies SI. - Time Spent With Patient Time Spent With Patient: 15" ICD10 Worksheet Patient Problems: Problems Problem Status Onset Schizoaffective disorder Acute Schizo-affective schizophrenia, chronic condition with acute exacerbation Acute
[2017-06-01] MEDS: OXYCODONE/APAP 5/325 TAB PO SCH ×5 (05:16→23:44)
[2017-06-01] MEDS: ALBUTEROL 60 PUFFS/8 GM MDI IH SCH ×4 (06:03→20:25)
[2017-06-01] MEDS: DOCUSATE SODIUM 100 MG CAP PO SCH ×4 (08:20→20:34)
[2017-06-01] MEDS: FLUTICASONE/SALMETER 250/50MCG DISKUS IH SCH ×2 (08:20→20:25)
[2017-06-01] MEDS: MELOXICAM 7.5 MG PO SCH ×2 (08:20→17:29)
[2017-06-01] MEDS: DIVALPROEX NA 125 MG CAP.SPRINKLE PO SCH ×2 (08:20→20:26)
[2017-06-01] MEDS: LIOTHYRONINE SODIUM 25 MCG TAB PO SCH (08:20)
--- NOTE | 2017-06-01 14:14 | SOAPPROG ---
[facility] Progress Note Assessment/Plan: Assessment: Plan: 05/30/17 15:47 Mood: Appears stable at this time. She may be best served at this point by inpatient rehab to address her physical issues. I could follow her up there and continue to monitor and/or treat any psychiatric problems. 05/31/17 16:42 Mood: No change. Continues to focus on physical issues. Will [facility], await word from rehab. 06/01/17 14:16 Mood: Remains anergic, debilitated. I still question the origin of this in her mood. Will [facility], confer again with Dr. Alicea. May have to go back to for skilled care. Subjective: Pt seen, discussed with staff. Reports feeling "tired" per usual. Refused PT earlier stating she was too tired. PT indicated to me that she believed pt was not a candidate for inpatient rehab due to level of functioning. Recommends half-way at [place]. Objective: Vital Signs Temp Pulse Resp BP Pulse Ox 36.3 C 70 14 122/58 H 99 06/01/17 06:00 06/01/17 06:00 06/01/17 06:00 06/01/17 06:00 06/01/17 06:00 MSE: Calm, somewhat irritable. States she doesn't want to talk. TP is linear. TC reveals no psychosis. - Time Spent With Patient Time Spent With Patient: 15" ICD10 Worksheet Patient Problems: Problems Problem Status Onset Schizoaffective disorder Acute Schizo-affective schizophrenia, chronic condition with acute exacerbation Acute
[2017-06-01] MEDS: KETOCONAZOLE 2% 120 ML SHAMPOO TP SCH (17:10)
[2017-06-02] MEDS: LORazepam 1 MG TAB PO PRN ×2 (03:26→21:48)
[2017-06-02] MEDS: ALBUTEROL 60 PUFFS/8 GM MDI IH SCH ×4 (06:01→20:13)
[2017-06-02] MEDS: OXYCODONE/APAP 5/325 TAB PO SCH ×3 (06:01→17:35)
[2017-06-02] MEDS: DOCUSATE SODIUM 100 MG CAP PO SCH ×2 (07:32→19:57)
[2017-06-02] MEDS: MELOXICAM 7.5 MG PO SCH ×2 (07:32→17:36)
[2017-06-02] MEDS: FLUTICASONE/SALMETER 250/50MCG DISKUS IH SCH ×2 (08:16→20:13)
[2017-06-02] MEDS: DIVALPROEX NA 125 MG CAP.SPRINKLE PO SCH ×2 (08:16→20:13)
[2017-06-02] MEDS: LIOTHYRONINE SODIUM 25 MCG TAB PO SCH (08:16)
--- NOTE | 2017-06-02 14:08 | SOAPPROG ---
[facility] Progress Note Assessment/Plan: Assessment: Plan: 05/30/17 15:47 Mood: Appears stable at this time. She may be best served at this point by inpatient rehab to address her physical issues. I could follow her up there and continue to monitor and/or treat any psychiatric problems. 05/31/17 16:42 Mood: No change. Continues to focus on physical issues. Will [facility], await word from rehab. 06/01/17 14:16 Mood: Remains anergic, debilitated. I still question the origin of this in her mood. Will [facility], confer again with Dr. Alicea. May have to go back to for skilled care. 06/02/17 14:07 Mood: No change. Continue to seek a final recommendation from inpatient rehab. [facility]. Subjective: Pt seen, discussed with staff. Reports feeling "really tired." Continues to spend her time in bed. Ambivalent about rehab. Continues to deny any acute psychiatric symptoms and state she does not need ECT at this time. Objective: Vital Signs Temp Pulse Resp BP Pulse Ox 36.4 C 60 14 91/52 L 100 06/02/17 06:00 06/02/17 06:00 06/02/17 06:00 06/02/17 06:00 06/02/17 06:00 MSE: Lying in bed motionless, staring at the ceiling. Calm, coop. Affect is blunted to flat. Mood is "fine." TP is linear. TC reveals no psychosis. Denies SI/HI/. - Time Spent With Patient Time Spent With Patient: 25" ICD10 Worksheet Patient Problems: Problems Problem Status Onset Schizoaffective disorder Acute Schizo-affective schizophrenia, chronic condition with acute exacerbation Acute
[2017-06-03] MEDS: OXYCODONE/APAP 5/325 TAB PO SCH ×3 (00:10→11:52)
[2017-06-03] MEDS: ALBUTEROL 60 PUFFS/8 GM MDI IH SCH ×2 (06:03→11:53)
[2017-06-03 07:03] VITALS: BP 124/62; PULSE 78; TEMP 97.2; O2SAT 98
[2017-06-03] MEDS: DOCUSATE SODIUM 100 MG CAP PO SCH (08:37)
[2017-06-03] MEDS: MELOXICAM 7.5 MG PO SCH (08:37)
[2017-06-03] MEDS: DIVALPROEX NA 125 MG CAP.SPRINKLE PO SCH (08:38)
[2017-06-03] MEDS: FLUTICASONE/SALMETER 250/50MCG DISKUS IH SCH (08:38)
[2017-06-03] MEDS: LIOTHYRONINE SODIUM 25 MCG TAB PO SCH (08:38)
[2017-06-03] MEDS ORDERED: MELOXICAM 7.5 MG PO PRN (12:30)
== END 2017-06-03 14:54 | DRG 885 ==
LOC: EDUNIT# → BBEH 05-27 10:45
PROVIDERS: ADMIT Psychiatry & Neurology Psychiatry; ATTEND Psychiatry & Neurology Psychiatry
DX: F25.1 Schizoaffective disorder, depressive type (principal); R64 Cachexia; J44.9 Chronic obstructive pulmonary disease, unspecified; I10 Essential (primary) hypertension; E11.9 Type 2 diabetes mellitus without complications; E03.9 Hypothyroidism, unspecified
CPT/HCPCS: 80305; 97110-GP; 97116-GP; 97161-GP; 97530-GP; G8978-GP-CJ; G8978-GP-CK; G8979-GP-CJ; G8980-GP-CJ

== ENCOUNTER → 2017-12-09 | Outpatient (CLI) | payer OTHER, MEDICAID | LOC: FIMAGING 13:23 | DX: Z12.31 Encounter for screening mammogram for malignant neoplasm of breast (principal) ==